=== PATIENT | female | born 1945 | race African-American/Black ===

== ENCOUNTER 2016-11-21 14:58 | Inpatient (IN) | payer OTHER ==
[2016-11-21] VITALS (10 sets, daily range): BP systolic 105–205; BP diastolic 68–90
[~2016-11-21] VITALS: Ht 157.5 cm; Wt 86.2 kg
--- NOTE | ~2016-11-21 | 2DMMODE ---
[facility] [address] [address] 2 D/M-MODE ECHOCARDIOGRAM Name: KAROLINE CHRISTIANSON Room #: 432-P ADM IN M.R.#: [id number] Admission: 11/21/16 Attend Phys: Tommy Bhakta MD, Discharge: Date of : 43 Date of Service: 11/22/16 1348 Report #: [id number] THIS REPORT FOR: //name// APPROVED REPORT Study performed: 11/22/2016 08:33:36 EXAM: Comprehensive 2D, Doppler, and color-flow Echocardiogram Patient Location: Echo lab Room #: 432 Other Information Study Quality: Good Indications COPD Bradycardia CAD Hypertension/HDD 2D Dimensions RVDd: 27.89 mm LVEF(%): 72.11 (>50%) IVSd: 13.96 (7-11mm) LVOT Diam: 18.11 (18-24mm) LVDd: 35.51 mm PWd: 13.54 (7-11mm) Ascending Ao: 27.99 (22-36mm) LVDs: 21.16 (25-40mm) Aortic Root: 26.27 mm IVC: 10.00 mm Pacheco's LVEF: 72.11 % Volumes Left Atrial Volume (Systole) Single Plane 4CH: 34.94 mL Single Plane 2CH: 35.60 mL LA ESV Index: 56.00 mL/m2 Aortic Valve AoV Peak Daniel.: 1.73 m/s AO Peak Gr.: 11.97 mmHg LVOT Max P.78 mmHg LVOT Max V: 1.48 m/s CHUCK Vmax: 2.21 cm2 Mitral Valve E/A Ratio: 0.8 MV Decel. Time: 294.74 ms [facility] [address] [address] 2 D/M-MODE ECHOCARDIOGRAM Name: KAROLINE CHRISTIANSON Room #: [facility] [place] [facility].#: [id number] Admission: 11/21/16 Attend Phys: Tommy Bhakta MD, Discharge: Date of : 43 Date of Service: 11/22/16 1348 Report #: [id number] E Max Daniel.: 0.87 m/s MV A Daniel.: 1.14 m/s MV PHT: 85.48 ms IVRT: 141.87 ms Pulmonary Valve PV Peak Daniel.: 1.01 m/s PV Peak Gr.: 4.09 mmHg Pulmonary Vein P Vein S: 0.66 m/s P Vein A: 0.32 m/s P Vein D: 0.41 m/s P Vein A Dur.: 100.3 msec P Vein S/D Ratio: 1.61 Tricuspid Valve TR Peak Daniel.: 3.00 m/s RAP Estimate: 5.00 mmHg TR Peak Gr.: 36.02 mmHg Left Ventricle The left ventricle is normal size. There is normal LV segmental wall motion. Moderate concentric left ventricular hypertrophy. The left ventricular systolic function is normal. The left ventricular ejection fraction is within the normal range. LVEF is 65-70%. Mild diastolic dysfunction is present (impaired relaxation pattern). Right Ventricle The right ventricle is normal size. The right ventricular systolic function is normal. Atria Left atrium is dilated. Right atrium is dilated. Aortic Valve The aortic valve is mildly calcified No aortic regurgitation is present. There is no aortic valvular stenosis. Mitral Valve The mitral valve is normal in structure. Trace mitral regurgitation. No evidence of mitral valve stenosis. Tricuspid Valve The tricuspid valve is normal in structure. There is mild to moderate tricuspid regurgitation. The right atrial pressure is estimated at 5 mmHg and PAP estimated at 41 mmHg. Pulmonic Valve [address] [address] 2 D/M-MODE ECHOCARDIOGRAM Name: KAROLINE CHRISTIANSON Room #: 432-P [facility] IN M.R.#: [id number] Admission: 11/21/16 Attend Phys: Tommy Bhakta MD, Discharge: Date of : 43 Date of Service: 11/22/16 1348 Report #: [id number] The pulmonary valve is normal in structure. Trace pulmonic regurgitation. Great Vessels The aortic root is normal in size. IVC is normal in size and collapses >50% with inspiration. Pericardium There is no pericardial effusion. <Conclusion> The left ventricular systolic function is normal. Moderate concentric left ventricular hypertrophy. There is normal LV segmental wall motion. LVEF 65-70%. Mild diastolic dysfunction is present (impaired relaxation pattern). Both atria are dilated. The aortic valve is mildly calcified. No aortic regurgitation or stenosis The mitral valve is normal in structure. Trace mitral regurgitation. Pulmonary artery pressure of 40mmHg There is no pericardial effusion. <ELECTRONICALLY SIGNED> By: Edson Arellano MD, FACC 11/22/16 1348 1348 1348 Edson Arellano MD, FACC /INF
--- NOTE | ~2016-11-21 | EKG ---
[place] [address] [address] [facility] [place] [address] ELECTROCARDIOGRAM REPORT Name: KAROLINE CHRISTIANSON Room #: 432-P ADM IN M.R.#: [id number] Admission: 11/21/16 Attend Phys: Tommy Bhakta MD, FAAF Discharge: Date of : 43 Report #: [id number] THIS REPORT FOR: //name// [facility] Test Date: 2016-11-25 Test Time: 08:29:12 Pat Name: KAROLINE CHRISTIANSON Department: Room: 432 Gender: F Application Developer: KIA : 1945 Requested By: Tommy Bhakta Order Number: [id number] MD: Edson Arellano Measurements Intervals [place] Rate: 61 P: 48 CA: 125 QRS: -5 QRSD: 75 T: 13 QT: 418 QTc: 421 Interpretive Statements Sinus rhythm Abnormal R-wave progression, late transition Compared to ECG 11/22/2016 07:05:07 Sinus bradycardia no longer present Electronically Signed On 11-26-2016 9:22:47 CDT by Edson Arellano [email or web address] <ELECTRONICALLY SIGNED> By: Edson Arellano MD, [facility] 11/26/1622 8 8 Edson Arellano MD, [facility] /EPI
--- NOTE | ~2016-11-21 | EKG ---
[place] [address] [email or web address] [employer] [place] [address] ELECTROCARDIOGRAM REPORT Name: KAROLINE CHRISTIANSON Room #: 432- ADM IN M.R.#: [id number] Admission: 11/21/16 Attend Phys: Tommy Bhakta MD, FAAF Discharge: Date of : 43 Report #: [id number] THIS REPORT FOR: //name// [facility] Test Date: 2016-11-22 Test Time: 07:05:07 Pat Name: KAROLINE CHRISTIANSON Department: Room: 432 Gender: F Wrapping Machine Operator: Bonilla CONSTANTINO : 1945 Requested By: Jason Lopez Order Number: [id number] MD: Edson Arellano Measurements Intervals [place] Rate: 51 P: 59 OR: 117 QRS: -7 QRSD: 94 T: 25 QT: 498 QTc: 459 Interpretive Statements Sinus bradycardia Borderline short OR interval Consider left ventricular hypertrophy Compared to ECG 05/23/2007 09:52:10 Sinus bradycardia no longer present Electronically Signed On 11-23-2016 8:31:37 CDT by Edson Arellano [email or web address] <ELECTRONICALLY SIGNED> By: Edson Arellano MD, [facility] 11/23/16 0831 4 4 Edson Arellano MD, [facility] /EPI
[~2016-11-21 14:58] MED LIST: CHILDREN'S ASPI81 M1 PO; COZAAR 50 MG TA50 M2 PO; DUONEB 2.5-0.5 M3 ML INH; NORCO 5-325 TA1 EACH PO; NORVASC10 MG PO; ZOFRAN ODT4 MG PO
[2016-11-21 16:19] LABS: HEMOGLOBIN 12.8 gm/dL (12.0-15.0); MCH 26.5 pg (26.0-34.0); MCHC 32.7 g/dL (28.0-37.0); MCV 80.8 fL (80.0-100.0); PLATELET COUNT 310 thou/uL (150-400); RBC 4.82 mil/uL (4.20-5.00); RDW 15.1 % (10.5-14.5); WBC 11.7 thou/uL (4.0-11.0)
[2016-11-21 16:21] LABS: MANUAL DIFF YES
[2016-11-21 16:39] LABS: ANION GAP 6 mmol/L (7-16); BUN 23 mg/dL (7-18); CALCIUM 9.2 mg/dL (8.5-10.1); CHLORIDE 100 mmol/L (98-107); CO2 34 mmol/L (21-32); CREATININE 1.3 mg/dL (0.6-1.0); GLUCOSE 134 mg/dL (74-106); NT-PRO BRAIN NAT PEPTIDE 386 pg/mL (<300); SODIUM 140 mmol/L (136-145); TROPONIN-I < 0.04 ng/mL (<0.04-0.07)
[2016-11-21 16:44] LABS: POTASSIUM 2.7 mmol/L (3.5-5.1)
[2016-11-21 17:22] LABS: ABSOLUTE NEUTROPHILS 9.9 thou/uL (1.4-8.2); TOTAL CELL COUNT 100
[2016-11-21 17:23] LABS: ANISOCYTOSIS 1+; HYPOCHROMASIA 1+; LARGE PLATELETS FEW
[2016-11-21 18:33] LABS: URINE BILIRUBIN NEGATIVE (Negative); URINE BLOOD TRACE (Negative); URINE COLOR YELLOW; URINE GLUCOSE-RANDOM* NEGATIVE (Negative); URINE KETONES NEGATIVE (Negative); URINE NITRITE NEGATIVE (Negative); URINE PROTEIN (DIPSTICK) NEGATIVE (Negative); URINE UROBILINOGEN 0.2 E.U./dl (0.2-1.0)
[2016-11-21 18:46] LABS: BACTERIA 1-9 Few /HPF (None Seen); CASTS None Seen /LPF (None Seen); CRYSTALS None Seen /LPF (None Seen); SQUAMOUS >10 Many /LPF (0-3); URINE RBC None Seen /HPF (0-2)
[2016-11-21] MEDS ORDERED: PROTONIX40 M1 PO (22:27)
[2016-11-21] MEDS ORDERED: LAMISIL250 MG PO (22:30)
[2016-11-21] MEDS ORDERED: ANTIVERT25 MG PO (22:32)
[2016-11-21] MEDS ORDERED: LOPRESSOR50 PO (22:34)
[2016-11-21] MEDS ORDERED: ANORO ELLIPTA1 EACH IH (22:39)
[2016-11-22] VITALS (7 sets, daily range): BP systolic 146–184; BP diastolic 71–92
[2016-11-22 08:28] LABS: CALCIUM 9.5 mg/dL (8.5-10.1); CREATININE 1.2 mg/dL (0.6-1.0); POTASSIUM 3.3 mmol/L (3.5-5.1)
[2016-11-22 10:58] LABS: URINE CREATININE-RANDOM* 72.8 mg/dL; URINE POTASSIUM-RANDOM* 49.8 mmol/L
[2016-11-23 04:00] VITALS: BP 160/80
[2016-11-23 08:30] VITALS: BP 164/82
[2016-11-23 09:54] LABS: CALCIUM 9.7 mg/dL (8.5-10.1); CREATININE 1.2 mg/dL (0.6-1.0)
[2016-11-23 10:02] LABS: POTASSIUM 2.9 mmol/L (3.5-5.1)
[2016-11-23 15:42] VITALS: BP 148/67
[2016-11-23 15:45] VITALS: BP 148/67
[2016-11-23 21:00] VITALS: BP 155/78
[2016-11-24 04:00] VITALS: BP 173/100
[2016-11-24 05:12] LABS: ALBUMIN 3.7 g/dL (3.4-5.0); CALCIUM 9.6 mg/dL (8.5-10.1); CREATININE 1.2 mg/dL (0.6-1.0); PHOSPHORUS 3.1 mg/dL (2.5-4.9); POTASSIUM 3.5 mmol/L (3.5-5.1)
[2016-11-24 07:14] VITALS: BP 170/86
[2016-11-24 10:33] VITALS: BP 168/102
[2016-11-24 16:21] VITALS: BP 148/83
[2016-11-24 20:00] VITALS: BP 158/86
[2016-11-25 04:00] VITALS: BP 148/81
[2016-11-25 04:50] LABS: ALBUMIN 3.1 g/dL (3.4-5.0); CALCIUM 9.2 mg/dL (8.5-10.1); CREATININE 1.1 mg/dL (0.6-1.0); PHOSPHORUS 3.3 mg/dL (2.5-4.9); POTASSIUM 3.9 mmol/L (3.5-5.1)
[2016-11-25 08:56] VITALS: BP 177/81
[2016-11-25 16:14] VITALS: BP 168/89
[2016-11-25 20:10] VITALS: BP 157/73
[2016-11-26 03:34] VITALS: BP 135/78
[2016-11-26 07:35] VITALS: BP 149/81
[2016-11-29 17:11] LABS: RENIN < 0.167 ng/mL/hr (0.167-5.380)
== END 2016-11-26 18:45 | disposition home or self-care (01) | DRG 641 ==
LOC: ER 14:58 → 4E 17:25 → EROBS 17:25 → 4E 18:45
PROVIDERS: Family Medicine; Hospitalist; Nurse Practitioner
DX: E87.6 Hypokalemia (principal); I65.21 Occlusion and stenosis of right carotid artery; I10 Essential (primary) hypertension; H53.9 Unspecified visual disturbance; E11.9 Type 2 diabetes mellitus without complications; G47.33 Obstructive sleep apnea (adult) (pediatric); J30.2 Other seasonal allergic rhinitis; E78.5 Hyperlipidemia, unspecified; M19.90 Unspecified osteoarthritis, unspecified site; J44.9 Chronic obstructive pulmonary disease, unspecified; K21.9 Gastro-esophageal reflux disease without esophagitis; F17.210 Nicotine dependence, cigarettes, uncomplicated; Z88.0 Allergy status to penicillin; Z88.2 Allergy status to sulfonamides; Z91.041 Radiographic dye allergy status; Z82.49 Family history of ischemic heart disease and other diseases of the circulatory system; Z80.8 Family history of malignant neoplasm of other organs or systems
CPT/HCPCS: 10183

== ENCOUNTER → 2016-11-28 | Outpatient (CLI) | payer OTHER ==
[~2016-11-28] VITALS: Ht 157.5 cm; Wt 86.2 kg
[~2016-11-28] MED LIST changes: +ANORO ELLIPTA1 EACH IH; +ANTIVERT25 MG PO; +ASPIRIN325 PO; +AZITHROMYCIN 2250 MG PO; +COMBIVENT RESPIM4 GM INH; +LAMISIL250 MG PO; +LOPRESSOR25 PO; +LOPRESSOR50 PO; +PROTONIX40 M1 PO; +ZOFRAN4 MG PO
[2016-11-28 09:46] VITALS: BP 131/74
[2016-11-28 09:56] LABS: HEMATOCRIT 38.7 % (37.0-47.0); HEMOGLOBIN 12.4 gm/dL (12.0-15.0); MCH 26.6 pg (26.0-34.0); MCHC 32.1 g/dL (28.0-37.0); RBC 4.66 mil/uL (4.20-5.00); RDW 16.1 % (10.5-14.5); WBC 7.8 thou/uL (4.0-11.0)
[2016-11-28 10:07] LABS: CALCIUM 9.2 mg/dL (8.5-10.1); CREATININE 1.5 mg/dL (0.6-1.0); POTASSIUM 4.5 mmol/L (3.5-5.1)
[2016-11-28 10:17] LABS: APTT 20.9 Seconds (24.5-32.8); PROTIME 9.5 Seconds (9.3-11.4)
[2016-11-28 13:46] VITALS: BP 134/84
== END ==
LOC: SPEC 09:17
PROVIDERS: Nuclear Medicine Nuclear Cardiology
DX: I66.9 Occlusion and stenosis of unspecified cerebral artery (principal); I73.9 Peripheral vascular disease, unspecified; I12.9 Hypertensive chronic kidney disease with stage 1 through stage 4 chronic kidney disease, or unspecified chronic kidney disease; N18.9 Chronic kidney disease, unspecified; I25.10 Atherosclerotic heart disease of native coronary artery without angina pectoris; J44.9 Chronic obstructive pulmonary disease, unspecified; Z98.890 Other specified postprocedural states; E78.5 Hyperlipidemia, unspecified; K21.9 Gastro-esophageal reflux disease without esophagitis

== ENCOUNTER 2016-12-05 05:38 | Inpatient (IN) | payer OTHER ==
[~2016-12-05] VITALS: Ht 160 cm; Wt 91.2 kg
[2016-12-05] VITALS (12 sets, daily range): BP systolic 90–167; BP diastolic 49–102
--- NOTE | ~2016-12-05 | S ---
[facility] [place] [address] SURGICAL PATH RPT PROCEDURE Name: KENDRA CHRISTIANSON Room #: 213-P DIS IN M.R.#: [id number] Admission: 12/05/16 Date of : 43 Discharge: 12/07/16 Report #: [id number] Path Case #: [id number] PATHOLOGY REPORT COLLECTION DATE: 12/05/2016 RECEIVED DATE: 12/05/2016 SUBMITTING PHYS: Dr. Tripp Wilson OTHER PHYS: Dr. Kaushal Pedro M.D. Dr. Tommy Bhakta SPECIMEN(S) RECEIVED: A.Right carotid plaque * * * * * * * * * * * * FINAL DIAGNOSIS: A. Right carotid plaque, removal: - Calcific sclerosis. PATHOLOGIST: Sujatha Crocker M.D. REPORT ELECTRONICALLY SIGNED BY: Sujatha Corcker M.D. DATE/TIME: 12/07/2016 15:06 * * * * * * * * * * * * GROSS PATHOLOGY: The specimen is received in formalin labeled "Kendra Christianson, right carotid plaque". Received is a tubular segment of white-romeo rubbery tissue with multiple foci calcifications measuring 2.8 cm in length by 1.0 cm in diameter. The specimen is submitted representatively in cassette A1, following decalcification. (CAA; 12/06/2016) CLINICAL HISTORY: Carotid stenosis INITIAL CPT CODE(S): A; 23309, 42221 Professional services performed by [facility] at [facility] [address] [place] [address] Technical services performed by [facility] at [address] [place] [address], [address] [address]. [facility] [address] [place] [address] SURGICAL PATH RPT PROCEDURE Name: KENDRA CHRISTIANSON Room #: 213-P DIS IN Bibi#: [id number] Admission: 12/05/16 Date of : 43 Discharge: 12/07/16 Report #: [id number] Path Case #: [id number] [facility] [address] [place] [address] PHONE: [phone] DIRECTOR: Marcos Boyce M.D. * * * END OF REPORT * * *
[~2016-12-05 05:38] MED LIST changes: -ASPIRIN325 PO; -LOPRESSOR25 PO
[2016-12-05 09:00] LABS: URINE BILIRUBIN NEGATIVE (Negative); URINE BLOOD NEGATIVE (Negative); URINE COLOR YELLOW; URINE GLUCOSE-RANDOM* NEGATIVE (Negative); URINE KETONES NEGATIVE (Negative); URINE NITRITE NEGATIVE (Negative); URINE PROTEIN (DIPSTICK) TRACE (Negative); URINE UROBILINOGEN 0.2 E.U./dl (0.2-1.0)
[2016-12-05 09:14] LABS: ALBUMIN 4.3 g/dL (3.4-5.0); APTT 19.7 Seconds (24.5-32.8); CALCIUM 9.7 mg/dL (8.5-10.1); CREATININE 1.6 mg/dL (0.6-1.0); PROTIME 9.5 Seconds (9.3-11.4); TOTAL BILIRUBIN 0.5 mg/dL (<0.1-1.0)
[2016-12-05 13:45] LABS: HEMATOCRIT 40.2 % (37.0-47.0); MCH 26.7 pg (26.0-34.0); MCHC 32.2 g/dL (28.0-37.0); MCV 82.9 fL (80.0-100.0); RBC 4.85 mil/uL (4.20-5.00); RDW 16.1 % (10.5-14.5); WBC 10.5 thou/uL (4.0-11.0)
[2016-12-06] VITALS (13 sets, daily range): BP systolic 96–137; BP diastolic 52–83
[2016-12-06 05:41] LABS: HEMATOCRIT 28.9 % (37.0-47.0); MCH 26.8 pg (26.0-34.0); MCHC 32.3 g/dL (28.0-37.0); MCV 82.9 fL (80.0-100.0); RBC 3.49 mil/uL (4.20-5.00); WBC 13.5 thou/uL (4.0-11.0)
[2016-12-06 05:49] LABS: HEMOGLOBIN 9.3 gm/dL (12.0-15.0)
[2016-12-06 05:51] LABS: CALCIUM 7.7 mg/dL (8.5-10.1); CREATININE 1.7 mg/dL (0.6-1.0); POTASSIUM 3.8 mmol/L (3.5-5.1)
[2016-12-07 04:12] VITALS: BP 163/82
[2016-12-07 07:55] VITALS: BP 174/78
[2016-12-07] MEDS ORDERED: LOPRESSOR25 PO (09:30)
[2016-12-07] MEDS ORDERED: ASPIRIN325 PO (09:31)
[2016-12-07 09:58] VITALS: BP 174/78
[2016-12-07 11:00] VITALS: BP 188/102
== END 2016-12-07 13:45 | disposition home or self-care (01) | DRG 39 ==
LOC: ICU 05:38 → TBA 05:38 → PRE 09:17 → ICU 14:38 → 2N 12-06 12:52
PROVIDERS: Nurse Practitioner; Thoracic Surgery (Cardiothoracic Vascular Surgery)
PROC: 03CK0ZZ Extirpation of Matter from Right Internal Carotid Artery, Open Approach (ICD-10-PCS; principal; 2016-12-05)
PROC: 03UM0KZ Supplement Right External Carotid Artery with Nonautologous Tissue Substitute, Open Approach (ICD-10-PCS; principal; 2016-12-05)
DX: I65.21 Occlusion and stenosis of right carotid artery (principal); E78.5 Hyperlipidemia, unspecified; I10 Essential (primary) hypertension; K21.9 Gastro-esophageal reflux disease without esophagitis; M19.90 Unspecified osteoarthritis, unspecified site; F41.9 Anxiety disorder, unspecified; J44.9 Chronic obstructive pulmonary disease, unspecified; G47.33 Obstructive sleep apnea (adult) (pediatric); Z90.721 Acquired absence of ovaries, unilateral; Z87.442 Personal history of urinary calculi; Z88.2 Allergy status to sulfonamides; Z88.0 Allergy status to penicillin; Z88.1 Allergy status to other antibiotic agents; Z91.040 Latex allergy status
CPT/HCPCS: 10204; 10797; 48888; 50010; 50101; 50386; 50417; 50455; 51301; 52279; 54118; 56524; 56526; 56528; 56534; 56639; 62110; 62900; 64029; 65002; 65020; 65040; 65043; 65090; 70005

== ENCOUNTER 2016-12-08 23:57 | Emergency (ER) | payer OTHER ==
[~2016-12-08] VITALS: Ht 160 cm; Wt 77.1 kg
--- NOTE | ~2016-12-08 | EKG ---
[place] [address] [facility] [address] ELECTROCARDIOGRAM REPORT Name: KAROLINE CHRISTIANSON Room #: DEP Bibi#: [id number] Admission: 12/08/16 Attend Phys: Discharge: 12/09/16 Date of : 43 Report #: [id number] THIS REPORT FOR: //name// [facility] ED Test Date: 2016-12-09 Test Time: 00:26:58 Pat Name: KAROLINE CHRISTIANSON Department: Room: Gender: F Design Technician: lani shmuel : 1945 Requested By: [place] Will Order Number: [id number] MD: Edson Arellano Measurements Intervals [place] Rate: 60 P: 55 WY: 120 QRS: 7 QRSD: 77 T: 17 QT: 399 QTc: 399 Interpretive Statements Sinus rhythm Minimal nonspecific ST segment abnormality Compared to ECG 11/25/2016 08:29:12 ST (T wave) deviation now present Electronically Signed On 12-09-2016 10:59:57 CDT by Edson Arellano [email or web address] <ELECTRONICALLY SIGNED> By: Edson Arellano MD, [facility] 12/09/16 1059 D: 0725 Edson Arellano MD, FACC /EPI
[~2016-12-08 23:57] MED LIST changes: +ASPIRIN325 PO; +LOPRESSOR25 PO
[2016-12-09] MEDS ORDERED: LOPRESSOR50 PO (00:11)
[2016-12-09 00:51] LABS: URINE BILIRUBIN NEGATIVE (Negative); URINE BLOOD 2+ (Negative); URINE COLOR YELLOW; URINE GLUCOSE-RANDOM* TRACE (Negative); URINE KETONES NEGATIVE (Negative); URINE LEUKOCYTES-REFLEX 1+ (Negative); URINE PROTEIN (DIPSTICK) NEGATIVE (Negative); URINE UROBILINOGEN 0.2 E.U./dl (0.2-1.0)
[2016-12-09 00:58] LABS: CASTS None Seen /LPF (None Seen); CRYSTALS None Seen /LPF (None Seen); SQUAMOUS 0-3 Few /LPF (0-3); URINE RBC 0-2 Rare /HPF (0-2); URINE WBC-REFLEX 0-5 Rare /HPF (0-5)
[2016-12-09 00:59] LABS: ABSOLUTE NEUTROPHILS 8.3 thou/uL (1.4-8.2); BASOPHILS 0.1 % (0.0-2.0); HEMATOCRIT 35.4 % (37.0-47.0); MCHC 32.2 g/dL (28.0-37.0); MCV 83.8 fL (80.0-100.0); PLATELET COUNT 162 thou/uL (150-400); POLYS 82.9 % (36.0-66.0); RBC 4.22 mil/uL (4.20-5.00); RDW 15.9 % (10.5-14.5)
[2016-12-09 01:01] LABS: HEMOGLOBIN 11.4 gm/dL (12.0-15.0)
[2016-12-09 01:03] LABS: CALCIUM 9.2 mg/dL (8.5-10.1); CREATININE 1.2 mg/dL (0.6-1.0); MANUAL DIFF NO; POTASSIUM 3.3 mmol/L (3.5-5.1)
[2016-12-09 01:08] LABS: APTT 21.9 Seconds (24.5-32.8); PROTIME 9.8 Seconds (9.3-11.4)
[2016-12-09 01:13] LABS: ALBUMIN 3.5 g/dL (3.4-5.0); MAGNESIUM 2.2 mg/dL (1.8-2.4); TOTAL BILIRUBIN 0.3 mg/dL (<0.1-1.0); TOTAL PROTEIN 6.9 g/dL (6.4-8.2); TROPONIN-I 0.06 ng/mL (<0.04-0.07)
== END 2016-12-09 03:33 | disposition home or self-care (01) ==
LOC: ER 23:57
PROVIDERS: Emergency Medicine
DX: K59.00 Constipation, unspecified (principal); R07.9 Chest pain, unspecified; F41.9 Anxiety disorder, unspecified; I10 Essential (primary) hypertension; J44.9 Chronic obstructive pulmonary disease, unspecified; G47.33 Obstructive sleep apnea (adult) (pediatric); K21.9 Gastro-esophageal reflux disease without esophagitis; E78.5 Hyperlipidemia, unspecified; F17.210 Nicotine dependence, cigarettes, uncomplicated; F10.99 Alcohol use, unspecified with unspecified alcohol-induced disorder; Z98.890 Other specified postprocedural states; Z90.89 Acquired absence of other organs; Z90.721 Acquired absence of ovaries, unilateral; Z88.8 Allergy status to other drugs, medicaments and biological substances; Z91.040 Latex allergy status; Z88.0 Allergy status to penicillin; Z88.1 Allergy status to other antibiotic agents; Z88.2 Allergy status to sulfonamides

== ENCOUNTER → 2017-01-31 | Outpatient (CLI) | payer OTHER | LOC: RAD 10:17 | DX: M19.011 Primary osteoarthritis, right shoulder (principal); M51.36 Other intervertebral disc degeneration, lumbar region ==

== ENCOUNTER 2017-05-14 09:05 | Inpatient (IN) | payer OTHER ==
[~2017-05-14] VITALS: Ht 160 cm; Wt 80.3 kg
--- NOTE | ~2017-05-14 | EKG ---
[address] [place] [address] ELECTROCARDIOGRAM REPORT Name: KAROLINE CHRISTIANSON Room #: 353-P ADM IN M.R.#: [id number] Admission: 05/14/17 Attend Phys: Tommy Bhakta MD, FAAF Discharge: Date of : 43 Report #: [id number] THIS REPORT FOR: //name// [facility] Test Date: 2017-05-15 Test Time: 10:14:30 Pat Name: KAROLINE CHRISTIANSON Department: Room: 353 Gender: F Cancer Program Coordinator: chrissy : 1945 Requested By: Champ Dave Order Number: [id number] MD: Edson Arellano Measurements Intervals [place] Rate: 62 P: 60 MS: 112 QRS: -2 QRSD: 76 T: 32 QT: 369 QTc: 375 Interpretive Statements Sinus rhythm Borderline short MS interval Nonspecific ST segment abnormality Compared to ECG 05/14/2017 09:23:08 Sinus bradycardia no longer present Electronically Signed On 05-17-2017 7:43:14 ACCOUNTS PAYABLE SPECIALIST by Edson Arellano [email or web address] <ELECTRONICALLY SIGNED> By: Edson Arellano MD, [facility] 05/17/17 0743 1014 1014 Edson Arellano MD, [facility] /EPI
--- NOTE | ~2017-05-14 | HC ---
[facility] [place] [address] CONSULTATION Name: KAROLINE CHRISTIANSON Room #: [address] [place] [address] IN M.R.#: [id number] Admission: 05/14/17 Attend Phys: Tommy Bhakta MD, [facility] Discharge: 05/18/17 Date of : 44 Report #: [id number] THIS REPORT FOR: //name// CC: Champ Bhakta HISTORY OF PRESENT ILLNESS: The patient is a 72-year-old female that I am asked to see for some recurrent chest pain, pressure and really refractory hypertension. One episode of epigastric pain this morning after breakfast, but has had none of this previously. Does not have documented coronary artery disease, had a right carotid endarterectomy in October. She has underlying COPD. No prior coronary or cardiac intervention. Blood pressure and chronic dizziness have been an issue. I believe she was admitted for a troponin of 0.05, which is not significant. Creatinine 1.4, potassium 3.2. H and H was 11 and 36, WBC was 13.2. Systolic pressure was in the 200 range. Allegedly, she has been compliant with losartan 50, Lopressor 50 b.i.d. We had planned on sending her home on some more aggressive drugs last hospitalization, but apparently that did not happen. She also takes Combivent, meclizine, metoprolol 50 b.i.d., losartan 50, amlodipine 10. EKG has sinus lizzeth with some nonspecific changes more like LVH. The echo has previously revealed LVH, last summer. She has had no pain here. She had relief from nitroglycerin, but of course this is nonspecific for coronary pain, highly unlikely that this would be cardiac in etiology. PAST MEDICAL HISTORY: Positive for the carotid endarterectomy, hypertension, COPD, sleep apnea on CPAP, reflux, long history of GI issues, hypokalemia (was supposed to have been sent home on Aldactone). SOCIAL HISTORY: She is retired. Lives with her . Former tobacco use. She drinks Mogen Andrey on a daily basis a fairly small amount she states. FAMILY HISTORY: Negative for premature coronary disease. REVIEW OF SYSTEMS: Essentially negative except for stated above. LABORATORY DATA: CT of the head was performed, mild atrophy, chronic changes. The chest x-ray shows no acute process. PHYSICAL EXAMINATION: GENERAL: Se is pleasant and alert. She is in no distress. I will discontinue the nitro drip. VITAL SIGNS: Blood pressure is currently 170/80, was high as 207; pulse 60s. HEENT: Eyes reveal xanthelasmas. Pharynx is clear. NECK: Shows preserved upstrokes without JVD or bruits. Well-healed scar in the right carotid. LUNGS: Clear with ____ expiratory phase. CARDIOVASCULAR: Regular rate and rhythm, ____ distant S4, S1, S2. ABDOMEN: Obese, slightly tender in the epigastric, plus/minus Sánchez's. [facility] [address] [place] [address] CONSULTATION Name: KAROLINE CHRISTIANSON Room #: 353-P [facility] IN M.R.#: [id number] Admission: 05/14/17 Attend Phys: Tommy Bhakta MD, FAAF Discharge: 05/18/17 Date of : 43 Report #: [id number] EXTREMITIES: Reveal trace of edema, nonpitting. NEUROLOGIC: Nonfocal. SKIN: Warm and dry without xanthoma or ulcer. MUSCULOSKELETAL: Some mild valgus deformity of the knees. I did not ambulate her. ASSESSMENT: 1. Chest pain, I suspect gastroesophageal reflux. 2. 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 3. Peripheral chest pain. 4. Hypertension. 5. Hypercholesterolemia. 6. Sleep apnea. 7. Status post right carotid endarterectomy. RECOMMENDATIONS: We will initiate Aldactone for this refractory case. We will increase the losartan to 100, switch to a selective beta brayan with less negative chronotropic properties 10 mg of Bystolic. Echo Doppler is currently being performed. A nuclear stress test and abdominal ultrasound to rule out a significant underlying gallbladder disease in the a.m. Most importantly, we will need to get her on an optimal blood pressure regimen. I suspect this is noncardiac pain, but needs to be proven to all. We will continue to follow with you. Thank you for allowing us to assist in her care. <ELECTRONICALLY SIGNED> By: Gareth Rosales MD, FACC 05/31/17 08 151 47 Gareth Rosales MD, FACC /nt
--- NOTE | ~2017-05-14 | 2DMMODE ---
[facility] [address] [place] [address] 2 D/M-MODE ECHOCARDIOGRAM Name: KAROLINE CHRISTIANSON Room #: 353-P ADM IN M.R.#: [id number] Admission: 05/14/17 Attend Phys: Tommy Bhakta MD, Discharge: Date of : 43 Date of Service: 05/15/17 1033 Report #: [id number] THIS REPORT FOR: //name// APPROVED REPORT Study performed: 05/14/2017 15:09:42 EXAM: Comprehensive 2D, Doppler, and color-flow Echocardiogram Patient Location: Bedside Room #: 353 Status: routine BSA: 1.82 HR: 55 bpm BP: 172/79 mmHg Other Information Study Quality: Adequate Indications COPD Chest Pain Hypertension/HDD 2D Dimensions RVDd: 26.19 mm LVEF(%): 77.81 (>50%) IVSd: 13.61 (7-11mm) LVOT Diam: 16.71 (18-24mm) LVDd: 30.70 mm PWd: 13.54 (7-11mm) Ascending Ao: 26.13 (22-36mm) LVDs: 16.86 (25-40mm) Aortic Root: 28.49 mm IVC: 16.00 mm Pacheco's LVEF: 77.81 % Volumes Left Atrial Volume (Systole) Single Plane 4CH: 54.06 mL Single Plane 2CH: 54.95 mL LA ESV Index: 32.00 mL/m2 Aortic Valve AoV Peak Daniel.: 2.24 m/s AO Peak Gr.: 20.15 mmHg LVOT Max P.86 mmHg AO Mean Gr.: 8.20 mmHg LVOT Mean P.11 mmHg AO V2 Mean: 1.31 m/s LVOT Max V: 1.40 m/s AO V2 VTI: 33.21 cm LVOT Mean V: 0.77 m/s CHUCK (VTI): 1.43 cm2 LVOT V1 VTI: 21.64 cm CHUCK Vmax: 1.37 cm2 [facility] [address] [address] 2 D/M-MODE ECHOCARDIOGRAM Name: CHRISTIANSONKAROLINE Room #: 353-P [facility] IN .R.#: [id number] Admission: 05/14/17 Attend Phys: Tommy Bhakta MD, Discharge: Date of : 43 Date of Service: 05/15/17 1033 Report #: [id number] SV (LVOT): 47.43 mL Mitral Valve E/A Ratio: 0.6 MV Decel. Time: 341.93 ms MV E Max Daniel.: 0.67 m/s MV A Daniel.: 1.13 m/s MV PHT: 99.16 ms IVRT: 141.87 ms Pulmonary Valve PV Peak Daniel.: 1.03 m/s PV Peak Gr.: 4.20 mmHg Pulmonary Vein P Vein S: 0.72 m/s P Vein A: 0.32 m/s P Vein D: 0.41 m/s P Vein A Dur.: 114.2 msec P Vein S/D Ratio: 1.76 Tricuspid Valve TR Peak Daniel.: 2.72 m/s RAP Estimate: 5.00 mmHg TR Peak Gr.: 29.50 mmHg PA Pressure: 35.00 mmHg Left Ventricle The left ventricle is normal size. Mild concentric left ventricular hypertrophy. The left ventricular systolic function is normal. The left ventricular ejection fraction is within the normal range. LVEF is 65%. Mild diastolic dysfunction is present (impaired relaxation pattern). Right Ventricle The right ventricle is normal size. The right ventricular systolic function is normal. Aortic Valve The aortic valve is normal in structure. No aortic regurgitation is present. Mildly elevated aortic velocity at 2.2 m/s. Highest mean aortic valve gradient is 8 mmHg. Mitral Valve The mitral valve is normal in structure. There is no mitral valve regurgitation noted. No evidence of mitral valve stenosis. Tricuspid Valve The tricuspid valve is normal in structure. Trace to mild tricuspid regurgitation. PAP is estimated at 35 mmHg. [facility] [address] [place] [address] 2 D/M-MODE ECHOCARDIOGRAM Name: KAROLINE CHRISTIANSON Room #: 353-P ADM IN M.R.#: [id number] Admission: 05/14/17 Attend Phys: Tommy Bhakta MD, Discharge: Date of : 43 Date of Service: 05/15/17 1033 Report #: [id number] Pulmonic Valve The pulmonary valve is normal in structure. Trace to mild pulmonic regurgitation. Great Vessels The aortic root is normal in size. IVC is normal in size and collapses >50% with inspiration. Pericardium There is no pericardial effusion. <Conclusion> The left ventricle is normal size. Mild concentric left ventricular hypertrophy. LVEF is 65%. Mild diastolic dysfunction is present (impaired relaxation pattern). The right ventricular systolic function is normal. Mildly elevated aortic velocity at 2.2 m/s. Highest mean aortic valve gradient is 8 mmHg. There is no mitral valve regurgitation noted. Trace to mild tricuspid regurgitation. PAP is estimated at 35 mmHg. There is no pericardial effusion. <ELECTRONICALLY SIGNED> By: Gareth Rosales MD, FACC 05/15/17 1033 1033 1033 Gareth Rosales MD, FACC /INF
--- NOTE | ~2017-05-14 | EKG ---
[place] [address] [facility] [place] [address] ELECTROCARDIOGRAM REPORT Name: KAROLINE CHRISTIANSON Room #: MARI Mtz#: [id number] Admission: 05/14/17 Attend Phys: Discharge: Date of : 43 Report #: [id number] THIS REPORT FOR: //name// [facility] ED Test Date: 2017-05-14 Test Time: 09:23:08 Pat Name: KAROLINE CHRISTIANSON Department: Room: Gender: F Apartment Property Manager: [facility] : 1945 Requested By: Bony Carter Order Number: [id number] MD: Fransisco Nolan Measurements Intervals [place] Rate: 49 P: 76 WY: 111 QRS: 2 QRSD: 74 T: 34 QT: 451 QTc: 408 Interpretive Statements Sinus bradycardia Borderline short [place] interval Left ventricular hypertrophy Compared to ECG 12/09/2016 00:26:58 Left ventricular hypertrophy now present Sinus rhythm no longer present ST (T wave) deviation no longer present Electronically Signed On 05-14-2017 12:28:11 LADIES LOCKER ROOM ATTENDANT by Fransisco Nolan [email or web address] <ELECTRONICALLY SIGNED> By: Fransisco Nolan MD 05/14/17 1228 2 2 Fransisco Nolan MD /CALLI
--- NOTE | ~2017-05-14 | HC ---
[facility] [place] [address] CONSULTATION Name: KAROLINE CHRISTIANSON Room #: [address] [place] [address] IN M.R.#: [id number] Admission: 05/14/17 Attend Phys: Tommy Bhakta MD, FAAF Discharge: Date of : 43 Report #: [id number] THIS REPORT FOR: //name// CC: Tommy Bhakta DATE OF SERVICE: 05/14/2017 HISTORY OF PRESENT ILLNESS: This is a 72-year-old female patient who was evaluated by me for any neurological etiology for the patient's dizziness. She indicates when she tries to get up she feels dizzy and standing and she may have some ____ that time. She is fully subconscious during that episode. She has been evaluated by Cardiology and ENT and no definite cause has been found. REVIEW OF SYSTEMS: Indicate that she does have hypertension. Her blood pressure has been fluctuating here. It is not clear whether there is any correlation between high blood pressure and her dizziness. She had endarterectomy in the past. Review of systems also indicate she has sleep apnea. She was admitted with chest pain. Review of systems was carried out for 14-point, but except for one, it was noncontributory. PAST MEDICAL HISTORY: Negative for this kind of dizziness. She does have some hearing loss. FAMILY HISTORY: Negative for early age stroke. SOCIAL HISTORY: She does have a history of smoking and drinking. PHYSICAL EXAMINATION: Indicate that she is alert. She is responsive. Her speech, concentration, fund of knowledge and memory is at her baseline. Cranial nerve examination 2-12 is unremarkable. I do not see any nystagmus. She has symmetrical strength, sensation, reflexes and tone in all 4 extremities. There is no meningeal sign. There is no carotid bruit in this patient. I could not have a very good look at the patient's fundus. She is reasonably well-developed individual who does not have any dysmorphic features of eyes, ears and face. Her visions and hearing looks adequate. She does not have any thyroid mass. Cardiac examination indicate normal breath sounds and no murmur or atrial fibrillation, no respiratory difficulty or rhonchi was noted. Blood pressure is 155/73, respiration is 20, pulse is 74, temperature is 97.4. LABORATORY DATA: Her white count is 13.9. Her potassium was trace low at 3.3. We did an MRI of the head, MRA of the head and neck, they do not show any acute changes, but it does show chronic changes in this patient. IMPRESSION: It does not look like there is any neurological etiology for the patient's symptoms. We will check her for any postural drop in blood pressure. I will get an EEG done. She does have chronic changes on her MRI, but I do not [facility] [address] [place] [address] CONSULTATION Name: KAROLINE CHRISTIANSON Room #: 353-P [facility] IN M.R.#: [id number] Admission: 05/14/17 Attend Phys: Tommy Bhakta MD, FAAF Discharge: Date of : 43 Report #: [id number] think that explains her dizziness. We will reevaluate after checking her for any postural drop in blood pressure and see what happens after treating her hypertension. RECOMMENDATIONS: 1. Continue to treat for hypertension. 2. Check for any postural drop in blood pressure. 3. I will check an EEG in this patient, but if EEG is negative, it is unlikely that there is any neurological etiology for the patient's symptom and she should continue to follow up with other physicians to determine any other etiology for the patient's symptom. I discussed all of it in detail with the patient and she understands she wants to follow this plan. Thank you very much for this referral. <ELECTRONICALLY SIGNED> By: Emil Burkett MD 05/17/171934 32 28 Emil Burkett MD /nt
[2017-05-14 09:06] VITALS: BP 164/89
[2017-05-14 09:33] LABS: HEMATOCRIT 36.9 % (37.0-47.0); HEMOGLOBIN 11.8 gm/dL (12.0-15.0); MCH 26.7 pg (26.0-34.0); MCHC 32.1 g/dL (28.0-37.0); MCV 83.2 fL (80.0-100.0); PLATELET COUNT 237 thou/uL (150-400); RBC 4.43 mil/uL (4.20-5.00); RDW 15.2 % (10.5-14.5); WBC 13.2 thou/uL (4.0-11.0)
[2017-05-14 09:39] LABS: CALCIUM 9.4 mg/dL (8.5-10.1); CREATININE 1.4 mg/dL (0.6-1.0); POTASSIUM 3.2 mmol/L (3.5-5.1)
[2017-05-14 09:46] LABS: ALBUMIN 3.3 g/dL (3.4-5.0); TOTAL BILIRUBIN 0.2 mg/dL (<0.1-1.0); TOTAL PROTEIN 6.1 g/dL (6.4-8.2); TROPONIN-I 0.07 ng/mL (<0.06)
[2017-05-14 10:23] LABS: URINE BILIRUBIN NEGATIVE (Negative); URINE BLOOD TRACE (Negative); URINE CLARITY CLEAR; URINE COLOR YELLOW; URINE GLUCOSE-RANDOM* TRACE (Negative); URINE KETONES NEGATIVE (Negative); URINE NITRITE-REFLEX NEGATIVE (Negative); URINE PROTEIN (DIPSTICK) NEGATIVE (Negative); URINE UROBILINOGEN 0.2 E.U./dl (0.2-1.0)
[2017-05-14 10:24] LABS: URINE LEUKOCYTES-REFLEX TRACE (Negative)
[2017-05-14 10:42] LABS: ABSOLUTE NEUTROPHILS 10.2 thou/uL (1.4-8.2); METAMYELOCYTES 1 %
[2017-05-14 10:43] LABS: ANISOCYTOSIS SLIGHT
[2017-05-14 11:03] LABS: INR 1.1; PROTIME 10.8 Seconds (9.3-11.4)
[2017-05-14 12:09] VITALS: BP 183/91
[2017-05-14 12:28] VITALS: BP 183/91
[2017-05-14] MEDS ORDERED: ASPIR 8181 MG PO (13:17)
[2017-05-14] MEDS ORDERED: ANTIVERT25 MG PO (13:17)
[2017-05-14 13:25] VITALS: BP 172/79
[2017-05-14 16:30] VITALS: BP 158/71
[2017-05-14 20:00] VITALS: BP 132/66
[2017-05-15] VITALS (8 sets, daily range): BP systolic 134–181; BP diastolic 63–102
[2017-05-15 09:46] LABS: HEMATOCRIT 39.2 % (37.0-47.0); HEMOGLOBIN 12.6 gm/dL (12.0-15.0); MCHC 32.2 g/dL (28.0-37.0); MCV 83.7 fL (80.0-100.0); RBC 4.68 mil/uL (4.20-5.00); RDW 15.7 % (10.5-14.5); WBC 13.9 thou/uL (4.0-11.0)
[2017-05-15 09:57] LABS: CREATININE 1.2 mg/dL (0.6-1.0); POTASSIUM 3.3 mmol/L (3.5-5.1)
[2017-05-16] VITALS (8 sets, daily range): BP systolic 132–162; BP diastolic 66–83
[2017-05-16 06:36] LABS: CALCIUM 9.2 mg/dL (8.5-10.1); CREATININE 1.5 mg/dL (0.6-1.0); POTASSIUM 3.3 mmol/L (3.5-5.1)
[2017-05-17 07:54] VITALS: BP 137/75
[2017-05-17 11:37] VITALS: BP 143/61
[2017-05-17 11:54] LABS: HEMATOCRIT 35.1 % (37.0-47.0); HEMOGLOBIN 11.3 gm/dL (12.0-15.0); MCH 26.9 pg (26.0-34.0); MCHC 32.2 g/dL (28.0-37.0); MCV 83.7 fL (80.0-100.0); RBC 4.19 mil/uL (4.20-5.00); RDW 15.3 % (10.5-14.5); WBC 15.1 thou/uL (4.0-11.0)
[2017-05-17 19:29] VITALS: BP 147/85
[2017-05-18 04:15] VITALS: BP 145/92
[2017-05-18 08:30] VITALS: BP 121/56
[2017-05-18 12:34] VITALS: BP 139/65
[2017-05-18] MEDS ORDERED: ALDACTONE25 MG PO (13:48)
[2017-05-18 14:39] VITALS: BP 139/65
[2018-01-13] MEDS ORDERED: LOSARTAN POTAS100 MG PO (14:56)
[2018-01-13] MEDS ORDERED: TORSEMIDE10 MG PO (14:57)
[2018-01-13] MEDS ORDERED: MECLIZINE HCL12.5 MG PO (14:59)
[2018-01-13] MEDS ORDERED: XANAX 0.5 MG0.5 MG PO (15:00)
[2018-01-16] MEDS ORDERED: TORSEMIDE20 MG PO (17:12)
[2018-01-16] MEDS ORDERED: COZAAR 50 MG TA50 M1 PO (17:12)
[2018-01-16] MEDS ORDERED: AMLODIPINE BESYL5 MG PO (17:12)
[2018-01-16] MEDS ORDERED: SPIRONOLACTONE25 M1 PO (17:12)
[2018-01-16] MEDS ORDERED: BYSTOLIC20 MG PO (17:12)
== END 2017-05-18 15:29 | disposition home or self-care (01) | DRG 313 ==
LOC: ER 09:05 → 3W 11:18 → EROBS 11:18 → ER 12:44 → 3W 12:44
PROVIDERS: Family Medicine; Nurse Practitioner Adult Health; Physician Assistant; Psychiatry & Neurology Neuromuscular Medicine
DX: R07.89 Other chest pain (principal); F41.9 Anxiety disorder, unspecified; I25.10 Atherosclerotic heart disease of native coronary artery without angina pectoris; K21.9 Gastro-esophageal reflux disease without esophagitis; E87.6 Hypokalemia; G47.33 Obstructive sleep apnea (adult) (pediatric); N18.9 Chronic kidney disease, unspecified; I12.9 Hypertensive chronic kidney disease with stage 1 through stage 4 chronic kidney disease, or unspecified chronic kidney disease; J44.9 Chronic obstructive pulmonary disease, unspecified; E78.00 Pure hypercholesterolemia, unspecified; Z82.49 Family history of ischemic heart disease and other diseases of the circulatory system; Z79.899 Other long term (current) drug therapy; Z88.1 Allergy status to other antibiotic agents; Z90.49 Acquired absence of other specified parts of digestive tract; Z90.721 Acquired absence of ovaries, unilateral; Z91.040 Latex allergy status; Z88.0 Allergy status to penicillin; Z88.2 Allergy status to sulfonamides; Z91.018 Allergy to other foods; Z80.9 Family history of malignant neoplasm, unspecified; Z87.891 Personal history of nicotine dependence
CPT/HCPCS: 10879

== ENCOUNTER 2017-09-09 17:26 | Emergency (ER) | payer OTHER ==
[~2017-09-09] VITALS: Ht 162.6 cm; Wt 78.9 kg
--- NOTE | ~2017-09-09 | EKG ---
[facility] [place] [address] ELECTROCARDIOGRAM REPORT Name: KAROLINE CHRISTIANSON Room #: [facility] Biib#: [id number] Admission: 09/09/17 Attend Phys: Discharge: 09/09/17 Date of : 43 Report #: [id number] THIS REPORT FOR: //name// [facility] ED Test Date: 2017-09-09 Test Time: 18:01:42 Pat Name: KAROLINE CHRISTIANSON Department: Room: Gender: F Needle Punch Machine Operator Helper: DIEGO : 1945 Requested By: Radha Knapp Order Number: [id number] MD: Edson Arellano Measurements Intervals [place] Rate: 59 P: 34 DE: 126 QRS: -19 QRSD: 75 T: 27 QT: 409 QTc: 406 Interpretive Statements Sinus rhythm Left ventricular hypertrophy Compared to ECG 05/15/2017 10:14:30 Left ventricular hypertrophy now present ST (T wave) deviation no longer present Electronically Signed On 09-10-2017 9:08:37 CDT by Edson Arellano [email or web address] <ELECTRONICALLY SIGNED> By: Edson Arellano MD, [facility] 09/10/17 0908 00 00 Edson Arellano MD, [facility] /EPI
[~2017-09-09 17:26] MED LIST changes: +ALDACTONE25 MG PO; +ASPIR 8181 MG PO
[2017-09-09 18:47] LABS: ABSOLUTE NEUTROPHILS 9.5 thou/uL (1.4-8.2); BASOPHILS 0.1 % (0.0-2.0); HEMATOCRIT 36.8 % (37.0-47.0); HEMOGLOBIN 11.9 gm/dL (12.0-15.0); LYMPHOCYTES 8.1 % (24.0-44.0); MCH 26.9 pg (26.0-34.0); MCHC 32.3 g/dL (28.0-37.0); MCV 83.4 fL (80.0-100.0); MONOCYTES 5.5 % (1.0-8.0); PLATELET COUNT 268 thou/uL (150-400); POLYS 86.3 % (36.0-66.0); RBC 4.42 mil/uL (4.20-5.00); RDW 15.1 % (10.5-14.5); WBC 11.1 thou/uL (4.0-11.0)
[2017-09-09 18:57] LABS: ANION GAP 7 mmol/L (7-16); BUN 18 mg/dL (7-18); CALCIUM 9.4 mg/dL (8.5-10.1); CHLORIDE 100 mmol/L (98-107); CO2 34 mmol/L (21-32); CREATININE 1.2 mg/dL (0.6-1.0); GLUCOSE 129 mg/dL (74-106); POTASSIUM 3.1 mmol/L (3.5-5.1); SODIUM 141 mmol/L (136-145)
[2017-09-09 18:59] LABS: URINE BILIRUBIN NEGATIVE (Negative); URINE BLOOD NEGATIVE (Negative); URINE CLARITY CLEAR; URINE COLOR YELLOW; URINE GLUCOSE-RANDOM* NEGATIVE (Negative); URINE KETONES NEGATIVE (Negative); URINE LEUKOCYTES-REFLEX 1+ (Negative); URINE NITRITE-REFLEX NEGATIVE (Negative); URINE PROTEIN (DIPSTICK) NEGATIVE (Negative); URINE UROBILINOGEN 0.2 E.U./dl (0.2-1.0)
[2017-09-09 19:04] LABS: TROPONIN-I < 0.04 ng/mL (<0.06)
[2017-09-09 19:11] LABS: SQUAMOUS 0-3 Few /LPF (0-3)
[2017-09-09 19:12] LABS: BACTERIA-REFLEX None Seen /HPF (None Seen); CASTS None Seen /LPF (None Seen); CRYSTALS None Seen /LPF (None Seen); MUCUS None Seen strn/LPF (None Seen); URINE RBC None Seen /HPF (0-2); URINE WBC-REFLEX 0-5 Rare /HPF (0-5)
== END 2017-09-09 19:40 | disposition home or self-care (01) ==
LOC: ER 17:26
PROVIDERS: Emergency Medicine
DX: I95.1 Orthostatic hypotension (principal); I10 Essential (primary) hypertension; F41.9 Anxiety disorder, unspecified; J44.9 Chronic obstructive pulmonary disease, unspecified; G47.33 Obstructive sleep apnea (adult) (pediatric); K21.9 Gastro-esophageal reflux disease without esophagitis; E78.5 Hyperlipidemia, unspecified; I25.10 Atherosclerotic heart disease of native coronary artery without angina pectoris; Z90.89 Acquired absence of other organs; Z90.721 Acquired absence of ovaries, unilateral; Z91.040 Latex allergy status; Z88.0 Allergy status to penicillin; Z88.1 Allergy status to other antibiotic agents; Z91.018 Allergy to other foods; Z88.2 Allergy status to sulfonamides; Z88.8 Allergy status to other drugs, medicaments and biological substances; Z87.891 Personal history of nicotine dependence

== ENCOUNTER 2017-09-13 20:57 | Emergency (ER) | payer OTHER ==
[~2017-09-13] VITALS: Ht 162.6 cm; Wt 78.9 kg
--- NOTE | ~2017-09-13 | EKG ---
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 : 1945 Requested By: Bony Carter Order Number: [id number] MD: Edson Arellano Measurements Intervals [place] Rate: 59 P: 49 ME: 117 QRS: -17 QRSD: 78 T: 50 QT: 395 QTc: 392 Interpretive Statements Sinus rhythm Borderline short ME interval LVH with secondary repolarization abnormality Baseline wander in lead(s) V1 Compared to ECG 09/09/2017 18:01:42 No significant change was found Electronically Signed On 09-15-2017 16:32:02 CDT by Edson Arellano [email or web address] <ELECTRONICALLY SIGNED> By: Edson Arellano MD, [facility] [id number] Edson Arellano MD, [facility] /EPI
[2017-09-13 22:30] LABS: ABSOLUTE NEUTROPHILS 9.8 thou/uL (1.4-8.2); BASOPHILS 0.2 % (0.0-2.0); HEMATOCRIT 36.7 % (37.0-47.0); HEMOGLOBIN 11.9 gm/dL (12.0-15.0); LYMPHOCYTES 6.3 % (24.0-44.0); MCHC 32.3 g/dL (28.0-37.0); MCV 83.7 fL (80.0-100.0); MONOCYTES 5.9 % (1.0-8.0); PLATELET COUNT 215 thou/uL (150-400); POLYS 87.6 % (36.0-66.0); RBC 4.39 mil/uL (4.20-5.00); RDW 15.4 % (10.5-14.5); WBC 11.2 thou/uL (4.0-11.0)
[2017-09-13 22:39] LABS: ANION GAP 8 mmol/L (7-16); BUN 35 mg/dL (7-18); CALCIUM 9.2 mg/dL (8.5-10.1); CHLORIDE 97 mmol/L (98-107); CO2 36 mmol/L (21-32); CREATININE 1.9 mg/dL (0.6-1.0); GLUCOSE 147 mg/dL (74-106); SODIUM 141 mmol/L (136-145)
[2017-09-13 22:46] LABS: POTASSIUM 2.6 mmol/L (3.5-5.1)
[2017-09-13 22:47] LABS: ALBUMIN 4.3 g/dL (3.4-5.0); SGOT 26 U/L (15-37); SGPT 35 U/L (30-65); TOTAL BILIRUBIN 0.4 mg/dL (<0.1-1.0); TOTAL PROTEIN 7.3 g/dL (6.4-8.2); TROPONIN-I < 0.04 ng/mL (<0.06)
[2017-09-13] MEDS ORDERED: ALDACTONE25 MG PO (23:40)
== END 2017-09-14 01:00 | disposition home or self-care (01) ==
LOC: ER 20:57
PROVIDERS: Physician Assistant
DX: E87.6 Hypokalemia (principal); R60.0 Localized edema; F41.9 Anxiety disorder, unspecified; I10 Essential (primary) hypertension; I25.10 Atherosclerotic heart disease of native coronary artery without angina pectoris; G47.33 Obstructive sleep apnea (adult) (pediatric); K21.9 Gastro-esophageal reflux disease without esophagitis; E78.5 Hyperlipidemia, unspecified; Z91.040 Latex allergy status; Z88.0 Allergy status to penicillin; Z88.1 Allergy status to other antibiotic agents; Z88.2 Allergy status to sulfonamides; Z91.018 Allergy to other foods; Z88.8 Allergy status to other drugs, medicaments and biological substances; Z87.891 Personal history of nicotine dependence

== ENCOUNTER 2017-09-26 08:51 | Emergency (ER) | payer OTHER ==
[~2017-09-26] VITALS: Ht 162.6 cm; Wt 79.4 kg
--- NOTE | ~2017-09-26 | EKG ---
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[facility] : 1945 Requested By: Bony Carter Order Number: [id number] MD: Edson Arellano Measurements Intervals [place] Rate: 60 P: 60 LA: 127 QRS: -13 QRSD: 72 T: 110 QT: 388 QTc: 388 Interpretive Statements Sinus rhythm T wave abnormality, consider lateral ischemia Compared to ECG 09/13/2017 21:52:58 Lateral T wave abnormality is new Electronically Signed On 09-27-2017 8:47:46 CDT by Edson Arellano [email or web address] <ELECTRONICALLY SIGNED> By: Edson Arellano MD, [facility] 09/27/17 0847 0943 2 Edson Arellano MD, [facility] /EPI
[2017-09-26 09:32] LABS: URINE BILIRUBIN NEGATIVE (Negative); URINE BLOOD NEGATIVE (Negative); URINE CLARITY CLEAR; URINE COLOR YELLOW; URINE GLUCOSE-RANDOM* NEGATIVE (Negative); URINE KETONES NEGATIVE (Negative); URINE NITRITE-REFLEX NEGATIVE (Negative); URINE PROTEIN (DIPSTICK) NEGATIVE (Negative); URINE SPECIFIC GRAVITY <= 1.005 (1.005-1.035); URINE UROBILINOGEN 0.2 E.U./dl (0.2-1.0)
[2017-09-26 09:33] LABS: URINE LEUKOCYTES-REFLEX 1+ (Negative)
[2017-09-26 09:54] LABS: BACTERIA-REFLEX 1-9 Few /HPF (None Seen); CASTS None Seen /LPF (None Seen); CRYSTALS None Seen /LPF (None Seen); SQUAMOUS None Seen /LPF (0-3); URINE RBC None Seen /HPF (0-2); URINE WBC-REFLEX 0-5 Rare /HPF (0-5)
[2017-09-26 10:15] LABS: HEMATOCRIT 37.9 % (37.0-47.0); HEMOGLOBIN 12.3 gm/dL (12.0-15.0); MCH 27.7 pg (26.0-34.0); MCHC 32.5 g/dL (28.0-37.0); MCV 85.3 fL (80.0-100.0); PLATELET COUNT 235 thou/uL (150-400); RBC 4.44 mil/uL (4.20-5.00); RDW 16.1 % (10.5-14.5)
[2017-09-26 10:23] LABS: ANION GAP < 0 mmol/L (7-16); BUN 26 mg/dL (7-18); CHLORIDE 100 mmol/L (98-107); CO2 44 mmol/L (21-32); CREATININE 1.6 mg/dL (0.6-1.0); GLUCOSE 111 mg/dL (74-106); SODIUM 142 mmol/L (136-145)
[2017-09-26 10:24] LABS: POTASSIUM 2.8 mmol/L (3.5-5.1)
[2017-09-26 10:35] LABS: SGOT 39 U/L (15-37); SGPT 55 U/L (30-65); TOTAL BILIRUBIN 0.5 mg/dL (<0.1-1.0); TOTAL PROTEIN 6.8 g/dL (6.4-8.2)
[2017-09-26 10:36] LABS: TROPONIN-I < 0.04 ng/mL (<0.06)
[2017-09-26 10:38] LABS: ABSOLUTE NEUTROPHILS 6.1 thou/uL (1.4-8.2); PLATELET ESTIMATE NORMAL
[2017-09-26] MEDS ORDERED: POTASSIUM20 PO (12:30)
[2017-09-26] MEDS ORDERED: LASIX 20 MG TAB20 MG PO (12:30)
[2017-09-26] MEDS ORDERED: COMPRESSION TH1 EACH TOP (12:39)
[2017-09-26] MEDS ORDERED: MACROBID 100 M100 M1 PO (13:13)
== END 2017-09-26 13:38 | disposition home or self-care (01) ==
LOC: ER 08:51
PROVIDERS: Physician Assistant
DX: R60.0 Localized edema (principal); J44.9 Chronic obstructive pulmonary disease, unspecified; G47.33 Obstructive sleep apnea (adult) (pediatric); I25.10 Atherosclerotic heart disease of native coronary artery without angina pectoris; K21.9 Gastro-esophageal reflux disease without esophagitis; I10 Essential (primary) hypertension; E78.5 Hyperlipidemia, unspecified; Z87.891 Personal history of nicotine dependence; Z88.0 Allergy status to penicillin; Z88.1 Allergy status to other antibiotic agents

== ENCOUNTER 2017-09-28 15:28 | Emergency (ER) | payer OTHER ==
[~2017-09-28] VITALS: Ht 162.6 cm; Wt 81.7 kg
--- NOTE | ~2017-09-28 | EKG ---
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 09/30/17 0755 1545 1545 Edson Arellano MD, FAC /EPI
[~2017-09-28 15:28] MED LIST changes: +COMPRESSION TH1 EACH TOP; +LASIX 20 MG TAB20 MG PO; +MACROBID 100 M100 M1 PO; +POTASSIUM20 PO
[2017-09-28 16:09] LABS: ABSOLUTE NEUTROPHILS 10.3 thou/uL (1.4-8.2); BASOPHILS 0.4 % (0.0-2.0); HEMOGLOBIN 12.3 gm/dL (12.0-15.0); LYMPHOCYTES 6.8 % (24.0-44.0); MCH 27.7 pg (26.0-34.0); MCHC 32.2 g/dL (28.0-37.0); MCV 85.9 fL (80.0-100.0); MONOCYTES 4.4 % (1.0-8.0); PLATELET COUNT 217 thou/uL (150-400); POLYS 88.4 % (36.0-66.0); RBC 4.43 mil/uL (4.20-5.00); RDW 16.5 % (10.5-14.5); WBC 11.6 thou/uL (4.0-11.0)
[2017-09-28 16:14] LABS: CALCIUM 9.9 mg/dL (8.5-10.1); CREATININE 1.8 mg/dL (0.6-1.0); POTASSIUM 3.9 mmol/L (3.5-5.1)
[2017-09-28 16:23] LABS: TROPONIN-I 0.04 ng/mL (<0.06)
[2017-09-28] MEDS ORDERED: ZPAK PO (18:35)
== END 2017-09-28 19:10 | disposition home or self-care (01) ==
LOC: ER 15:28
PROVIDERS: Emergency Medicine
DX: R07.9 Chest pain, unspecified (principal); R11.0 Nausea; M10.9 Gout, unspecified; J44.9 Chronic obstructive pulmonary disease, unspecified; I10 Essential (primary) hypertension; I25.10 Atherosclerotic heart disease of native coronary artery without angina pectoris; K21.9 Gastro-esophageal reflux disease without esophagitis; E78.5 Hyperlipidemia, unspecified; F17.210 Nicotine dependence, cigarettes, uncomplicated; Z90.89 Acquired absence of other organs; Z88.1 Allergy status to other antibiotic agents; Z88.0 Allergy status to penicillin; Z88.8 Allergy status to other drugs, medicaments and biological substances; Z91.040 Latex allergy status; Z91.041 Radiographic dye allergy status; Z91.018 Allergy to other foods

== ENCOUNTER 2018-02-06 19:45 | Inpatient (IN) | payer OTHER ==
[~2018-02-06] VITALS: Ht 162.6 cm; Wt 79.2 kg
--- NOTE | ~2018-02-06 | H ---
[facility] [place] [address] HISTORY AND PHYSICAL Name: KAROLINE CHRISTIANSON Room #: 350-P ADM IN M.R.#: [id number] Admission: 02/06/18 Attend Phys: Tommy Bhakta MD, FAAF Discharge: Date of : 43 Report #: [id number] THIS REPORT FOR: //name// CC: Tommy Henry DATE OF SERVICE: 02/07/2018 CHIEF COMPLAINT: Right hip pain. HISTORY OF PRESENT ILLNESS: The patient is a 72-year-old black female well known to me. She is evaluated in the Emergency Room and admitted from there with several day evolution of right hip pain. CT scan showed an effusion. Sed rate was mildly elevated at 30 and white count was mildly elevated as well at 13.4. Lactate was elevated as well at 2.8 and subsequently 2.3 and she was admitted for diagnostic studies including aspiration of the joint effusion of the right hip as well as an Orthopedic Surgery consult. She was also hypokalemic. PAST MEDICAL HISTORY: Tonsillectomy, anxiety attacks, right oophorectomy, hypertension, COPD, obstructive sleep apnea, coronary artery disease, cardiomegaly, gastroesophageal reflux, hyperlipidemia, carotid stenosis, hypokalemia, colonoscopies, chronic renal disease and stents. MEDICATIONS: Bystolic 20 mg 1 p.o. daily, amlodipine 5 mg p.o. daily, losartan 50 mg 1 p.o. daily, spironolactone 25 mg p.o. daily, torsemide 20 mg p.o. daily, aspirin 81 mg chewable, potassium chloride 20 mEq 1 p.o. b.i.d., alprazolam 0.5 mg 1 p.o. q. 6 hours p.r.n. anxiety. ALLERGIES: OPTIRAY, LATEX, PENICILLIN, CEPHALEXIN, CONTRAST DYES, STRAWBERRY AND SULFA. SOCIAL HISTORY: Lives at home with a long-term boyfriend, smoked cigarettes in the past. Drinks ethanol socially. REVIEW OF SYSTEMS: GENERAL: No fever, chills, nausea, vomiting, diarrhea. EYES: No visual changes. ENT: No problems with hearing, swallow, taste or smell. CARDIOVASCULAR: No chest pain or palpitations. RESPIRATORY: No difficulty breathing. GASTROINTESTINAL: No abdominal pain. GENITOURINARY: No problems urinating. MUSCULOSKELETAL: Right hip pain. NEUROLOGIC: No paresis, paralysis or paresthesias. PSYCHIATRIC: Frustrated, not depressed. [address] [address] HISTORY AND PHYSICAL Name: KAROLINE CHRISTIANSON Room #: 350-P [facility] IN ..#: [id number] Admission: 02/06/18 Attend Phys: Tommy Bhakta MD, FAAF Discharge: Date of : 43 Report #: [id number] DERMATOLOGIC: No disturbing lesions or rash. Remainder of system review is negative. OBJECTIVE: VITAL SIGNS: Temperature 37.1, pulse 75, respirations 20, blood pressure 104/81. GENERAL: She is in no acute distress. Her right hip does hurt her. HEENT: Pupils are equal, round, reactive to light and accommodation. Extraocular muscles intact. Pharynx unremarkable. NECK: Supple. COR: S1, S2. CHEST: Clear. ABDOMEN: Soft, nontender. EXTREMITIES: Not edematous today. Her right hip is tender and pain is worse with movement. NEUROLOGIC: She is intact without focal neurologic deficit. LABORATORY DATA: CBC: White count 13.4, hemoglobin 11.0, hematocrit 33.5, platelets 296,000. Serum chemistry: Sodium 148, potassium 1.7, chloride 100, CO2 greater than 45, BUN 32, creatinine 1.8, estimated glomerular filtration rate 33, glucose 175. Lactate 2.8, repeated 2.3, calcium is 9.4. C-reactive protein is 34.2, elevated. Sed rate 30 also top of normal limits. CT scan of pelvis without contrast: Degenerative changes, right hip greater than left with no obvious acute fracture, large right hip joint effusion was present. Trace amount of free fluid was seen in the pelvis, nonspecific degenerative changes in the spine. Ultrasound of the right lower extremity is negative for DVT. ASSESSMENT: Right hip pain with effusion, hypokalemia, anemia, chronic renal insufficiency. PLAN: Admitted to the hospital. Joint effusion after joint fluid obtained. Start antibiotics if findings consistent with septic arthritis. Interventional Radiology consulted and Dr. Henry and his group consulted from Orthopedic Surgery. <ELECTRONICALLY SIGNED> By: Tommy Bhakta MD, FAAFP, FACEP 02/13/181743 32 33 Tommy Bhakta MD, ISAACFP, FACEP /nt
--- NOTE | ~2018-02-06 | HC ---
[facility] [place] [address] CONSULTATION Name: KAROLINE CHRISTIANSON Room #: 350- ADM IN M.R.#: [id number] Admission: 02/06/18 Attend Phys: Tommy Bhakta MD, FAAF Discharge: Date of : 43 Report #: [id number] THIS REPORT FOR: //name// CC: Tommy Bhakta MD REASON FOR CONSULTATION: Right hip pain. HISTORY OF PRESENT ILLNESS: The patient is a 72-year-old female who gives a history of 6-12 months of right hip pain. She reports the pain has become progressively worse over the last few weeks. She reports difficulty ambulating, difficulty weightbearing. She reports the pain is mostly located in her lateral femur and groin area. She denies any injury. REVIEW OF SYSTEMS: NEUROLOGIC: Denies numbness or tingling in her extremities. MUSCULOSKELETAL: Denies other extremity pain. PAST MEDICAL HISTORY: Significant for coronary artery disease, hypertension, COPD obstructive sleep apnea, gastroesophageal reflux disease, hyperlipidemia, chronic renal disease. PAST SURGICAL HISTORY: Tonsillectomy, carotid stent placement, and stent placed for her renal arteries. ALLERGIES: OPTIRAY, LATEX, PENICILLIN, KEFLEX, CONTRAST DYE, STRAWBERRY AND SULFA. SOCIAL HISTORY: Lives at home with her long-term boyfriend, drinks alcohol socially. She has been using a walker for ambulation. LABORATORY DATA: On 02/08/2018, showed white blood cell count 14.6, hemoglobin 10, hematocrit 30.6, platelet count 16.2. ESR on 02/06/2018 was 30. Chemistry on 02/08/2018 shows a significantly low potassium at 2.0, creatinine is slightly elevated at 1.2. CRP on 02/06/2018 was elevated at 34.2. Fluid analysis done on 02/07/2018 from her right hip showed white blood cell count 31,000, neutrophils 84 and no crystals were seen. PHYSICAL EXAMINATION: GENERAL: The patient is alert and oriented. She interacts appropriately. She is a well-developed, well-nourished female, in no acute distress. VITAL SIGNS: Most recent vital signs show temperature of 36.8, heart rate 58, respiration rate of 18, blood pressure 147/69, pulse oximetry is 97% on room air. EXTREMITIES: Examination of her bilateral lower extremities, skin is clean, dry and intact. She has brisk capillary refill. EHL, FHL, dorsiflexion and plantar flexion are intact. She has diffuse bilateral symmetric [place] [address] CONSULTATION Name: KAROLINE CHRISTIANSON Room #: [address] [place] [address] [place] [facility].#: [id number] Admission: 02/06/18 Attend Phys: Tommy Bhakta MD, FAAF Discharge: Date of : 43 Report #: [id number] no tenderness to palpation throughout the patient's bilateral knees, legs, ankles, or feet. There is no pain with range of motion of bilateral knees, ankles, or feet. There is no pain with range of motion of the left hip. There is some mild pain with range of motion of the right hip. There is tenderness to palpation of the anterior hip and lateral greater trochanter. There is no tenderness of the right posterior hip area. RADIOGRAPHS: CT of the pelvis shows joint effusion, some arthrosis is noted. IMPRESSION AND PLAN: Right hip pain with fluid analysis not consistent with infection at this point, microbiology is pending. I discussed the diagnosis as well as treatment options with the patient. She has a strong desire to avoid any surgery. She may be weightbearing as tolerated on this leg and I will continue to follow her. We will continue to follow the labs. By: 0928 1225 Madeleine Terry MD /nt
[~2018-02-06 19:45] MED LIST changes: +AMLODIPINE BESYL5 MG PO; +BYSTOLIC20 MG PO; +COZAAR 50 MG TA50 M1 PO; +LOSARTAN POTAS100 MG PO; +MECLIZINE HCL12.5 MG PO; +SPIRONOLACTONE25 M1 PO; +TORSEMIDE10 MG PO; +TORSEMIDE20 MG PO; +XANAX 0.5 MG0.5 MG PO; +ZPAK PO
[2018-02-06 19:46] VITALS: BP 104/81
[2018-02-06 21:03] LABS: HEMATOCRIT 33.5 % (37.0-47.0); MCH 29.7 pg (26.0-34.0); MCHC 32.7 g/dL (28.0-37.0); MCV 90.7 fL (80.0-100.0); RBC 3.69 mil/uL (4.20-5.00); WBC 13.4 thou/uL (4.0-11.0)
[2018-02-06 21:12] LABS: BUN 32 mg/dL (7-18); CALCIUM 9.4 mg/dL (8.5-10.1); CHLORIDE 100 mmol/L (98-107); CREATININE 1.8 mg/dL (0.6-1.0); GLUCOSE 175 mg/dL (74-106); SODIUM 148 mmol/L (136-145)
[2018-02-06 21:13] LABS: CO2 > 45 mmol/L (21-32); POTASSIUM 1.7 mmol/L (3.5-5.1)
[2018-02-06 21:30] LABS: MAGNESIUM 2.3 mg/dL (1.8-2.4)
[2018-02-07 00:11] VITALS: BP 154/97
[2018-02-07 00:29] VITALS: BP 154/97
[2018-02-07 05:00] VITALS: BP 166/80
[2018-02-07 07:47] VITALS: BP 159/90
[2018-02-07 14:09] LABS: BF NUCLEATED CELLS 31484; BF RBC 3271
[2018-02-07 14:10] LABS: CLARITY CLOUDY; COLOR YELLOW; TOTAL VOLUME 7 mL
[2018-02-07 14:47] LABS: BF CRYSTALS No Crystals seen
[2018-02-07 16:24] LABS: BF NEUTROPHILS 88; SOURCE SYNOVIAL
[2018-02-07 16:25] LABS: BF MACROPHAGE 9
[2018-02-07 16:51] VITALS: BP 156/87
[2018-02-07 19:15] VITALS: BP 152/81
[2018-02-08 06:00] VITALS: BP 174/86
[2018-02-08 06:19] LABS: HEMATOCRIT 30.6 % (37.0-47.0); MCH 29.8 pg (26.0-34.0); MCHC 32.7 g/dL (28.0-37.0); PLATELET COUNT 283 thou/uL (150-400); RBC 3.37 mil/uL (4.20-5.00); RDW 16.2 % (10.5-14.5); WBC 14.6 thou/uL (4.0-11.0)
[2018-02-08 06:30] LABS: CALCIUM 9.4 mg/dL (8.5-10.1); CREATININE 1.2 mg/dL (0.6-1.0)
[2018-02-08 08:00] VITALS: BP 147/69
[2018-02-08 08:10] LABS: PLATELET ESTIMATE NORMAL
[2018-02-08 12:00] VITALS: BP 148/94
[2018-02-08 14:30] VITALS: BP 152/86
[2018-02-08 16:00] VITALS: BP 151/81
[2018-02-08 19:09] VITALS: BP 134/85
[2018-02-09 03:20] VITALS: BP 152/89
[2018-02-09 05:35] LABS: URINE BILIRUBIN NEGATIVE (Negative); URINE BLOOD TRACE (Negative); URINE CLARITY CLEAR; URINE COLOR YELLOW; URINE GLUCOSE-RANDOM* 1+ (Negative); URINE KETONES NEGATIVE (Negative); URINE LEUKOCYTES-REFLEX NEGATIVE (Negative); URINE NITRITE-REFLEX NEGATIVE (Negative); URINE PROTEIN (DIPSTICK) TRACE (Negative); URINE UROBILINOGEN 0.2 E.U./dl (0.2-1.0)
[2018-02-09 05:42] LABS: HEMATOCRIT 31.3 % (37.0-47.0); MCH 29.1 pg (26.0-34.0); MCHC 31.8 g/dL (28.0-37.0); MCV 91.5 fL (80.0-100.0); RBC 3.42 mil/uL (4.20-5.00); RDW 16.1 % (10.5-14.5); WBC 13.2 thou/uL (4.0-11.0)
[2018-02-09 06:07] LABS: CALCIUM 9.2 mg/dL (8.5-10.1); CREATININE 1.3 mg/dL (0.6-1.0)
[2018-02-09 06:10] LABS: POTASSIUM 2.3 mmol/L (3.5-5.1)
[2018-02-09 07:24] VITALS: BP 154/98
[2018-02-09 11:18] VITALS: BP 138/76
[2018-02-09 15:34] VITALS: BP 134/79
[2018-02-09 19:35] VITALS: BP 143/79
[2018-02-09 20:00] VITALS: BP 143/79
[2018-02-10 05:08] VITALS: BP 139/86
[2018-02-10 05:42] LABS: HEMATOCRIT 33.3 % (37.0-47.0); HEMOGLOBIN 10.7 gm/dL (12.0-15.0); MCH 29.4 pg (26.0-34.0); MCV 91.8 fL (80.0-100.0); RBC 3.63 mil/uL (4.20-5.00); RDW 16.6 % (10.5-14.5); WBC 12.7 thou/uL (4.0-11.0)
[2018-02-10 05:51] LABS: CALCIUM 9.5 mg/dL (8.5-10.1); CREATININE 1.5 mg/dL (0.6-1.0); POTASSIUM 3.4 mmol/L (3.5-5.1)
[2018-02-10 07:21] VITALS: BP 152/97
[2018-02-10 11:15] VITALS: BP 136/76
[2018-02-10 16:53] VITALS: BP 155/93
[2018-02-10 19:38] VITALS: BP 132/88
[2018-02-11] VITALS (8 sets, daily range): BP systolic 137–194; BP diastolic 85–100
[2018-02-11 16:10] LABS: ANA INTERPRETATION Negative (())
[2018-02-12 05:43] VITALS: BP 153/87
[2018-02-12 07:05] VITALS: BP 151/96
[2018-02-12 07:48] VITALS: BP 153/87
[2018-02-12 12:00] VITALS: BP 141/96
[2018-02-12 16:38] VITALS: BP 138/81
[2018-02-12 19:30] VITALS: BP 158/94
[2018-02-13 04:20] VITALS: BP 169/91
[2018-02-13 06:13] LABS: ABSOLUTE NEUTROPHILS 7.2 thou/uL (1.4-8.2); BASOPHILS 0.2 % (0.0-2.0); EOSINOPHILS 0.2 % (0.0-3.0); HEMATOCRIT 31.6 % (37.0-47.0); HEMOGLOBIN 10.3 gm/dL (12.0-15.0); LYMPHOCYTES 9.4 % (24.0-44.0); MCH 29.8 pg (26.0-34.0); MCHC 32.6 g/dL (28.0-37.0); MCV 91.5 fL (80.0-100.0); MONOCYTES 6.4 % (1.0-8.0); PLATELET COUNT 222 thou/uL (150-400); POLYS 83.8 % (36.0-66.0); RBC 3.46 mil/uL (4.20-5.00); RDW 16.9 % (10.5-14.5); WBC 8.6 thou/uL (4.0-11.0)
[2018-02-13 06:18] LABS: CREATININE 1.3 mg/dL (0.6-1.0); POTASSIUM 3.7 mmol/L (3.5-5.1)
[2018-02-13 08:34] VITALS: BP 147/89
[2018-02-13 12:45] VITALS: BP 154/105
[2018-02-13] MEDS ORDERED: COZAAR100 MG PO (17:33)
[2018-02-13] MEDS ORDERED: CLEOCIN HCL150 MG PO (17:33)
[2018-02-13] MEDS ORDERED: MOBIC7.5 M1 PO (17:33)
== END 2018-02-13 18:37 | DRG 565 ==
LOC: ER 19:45 → EROBS 23:48 → 3W 23:48 → ER 02-07 00:30 → 3W 02-07 00:31
PROVIDERS: Family Medicine; Hospitalist; Physician Assistant; Radiology Diagnostic Radiology
PROC: 0S993ZX Drainage of Right Hip Joint, Percutaneous Approach, Diagnostic (ICD-10-PCS; principal; 2018-02-07)
PROC: 5A09357 Assistance with Respiratory Ventilation, Less than 24 Consecutive Hours, Continuous Positive Airway Pressure (ICD-10-PCS; 2018-02-08)
DX: M25.451 Effusion, right hip (principal); E87.0 Hyperosmolality and hypernatremia; M16.11 Unilateral primary osteoarthritis, right hip; J44.9 Chronic obstructive pulmonary disease, unspecified; G47.33 Obstructive sleep apnea (adult) (pediatric); I25.10 Atherosclerotic heart disease of native coronary artery without angina pectoris; E78.5 Hyperlipidemia, unspecified; N18.9 Chronic kidney disease, unspecified; E87.6 Hypokalemia; K21.9 Gastro-esophageal reflux disease without esophagitis; F41.9 Anxiety disorder, unspecified; D64.9 Anemia, unspecified; I12.9 Hypertensive chronic kidney disease with stage 1 through stage 4 chronic kidney disease, or unspecified chronic kidney disease; Z90.721 Acquired absence of ovaries, unilateral; Z88.2 Allergy status to sulfonamides; Z88.8 Allergy status to other drugs, medicaments and biological substances; Z91.041 Radiographic dye allergy status; Z91.040 Latex allergy status; Z87.891 Personal history of nicotine dependence; Z79.82 Long term (current) use of aspirin; Z79.899 Other long term (current) drug therapy; Z82.49 Family history of ischemic heart disease and other diseases of the circulatory system; Z88.0 Allergy status to penicillin
CPT/HCPCS: 10879

== ENCOUNTER 2018-02-21 18:07 | Emergency (ER) | payer OTHER ==
[~2018-02-21] VITALS: Ht 154.9 cm; Wt 120.2 kg
--- NOTE | ~2018-02-21 | EKG ---
[place] [address] [facility] [place] [address] ELECTROCARDIOGRAM REPORT Name: KAROLINE CHRISTIANSON Room #: DEP Bibi#: [id number] Admission: 02/21/18 Attend Phys: Discharge: 02/22/18 Date of : 43 Report #: [id number] THIS REPORT FOR: //name// [facility] ED Test Date: 2018-02-21 Test Time: 18:22:52 Pat Name: KAROLINE CHRISTIANSON Department: Room: Gender: F Service Center Supervisor: JOAOAleena : 1945 Requested By: Celsa Pavon Order Number: [id number] MD: Edson Arellano Measurements Intervals [place] Rate: 65 P: 60 OR: 128 QRS: -13 QRSD: 79 T: 55 QT: 363 QTc: 378 Interpretive Statements Sinus rhythm Multiple premature complexes, supraven LVH with secondary repolarization abnormality Baseline wander in lead(s) I,aVR Compared to ECG 01/14/2018 07:25:48 Nonspecific change in the T wave abnormality Electronically Signed On 02-22-2018 10:10:12 CDT by Edson Arellano [email or web address] <ELECTRONICALLY SIGNED> By: Edson Arellano MD, [facility] 02/22/18 1010 182 182 Edson Arellano MD, [facility] /EPI
[~2018-02-21 18:07] MED LIST changes: +CLEOCIN HCL150 MG PO; +COZAAR100 MG PO; +MOBIC7.5 M1 PO
[2018-02-21 19:03] LABS: HEMATOCRIT 28.1 % (37.0-47.0); HEMOGLOBIN 9.4 gm/dL (12.0-15.0); MCH 30.1 pg (26.0-34.0); MCHC 33.5 g/dL (28.0-37.0); MCV 89.7 fL (80.0-100.0); PLATELET COUNT 180 thou/uL (150-400); RBC 3.13 mil/uL (4.20-5.00); RDW 16.9 % (10.5-14.5); WBC 14.2 thou/uL (4.0-11.0)
[2018-02-21 19:22] LABS: ABSOLUTE NEUTROPHILS 12.2 thou/uL (1.4-8.2)
[2018-02-21 19:23] LABS: CALCIUM 9.8 mg/dL (8.5-10.1); CREATININE 1.8 mg/dL (0.6-1.0); POTASSIUM 3.2 mmol/L (3.5-5.1)
[2018-02-21 20:52] LABS: URINE BILIRUBIN NEGATIVE (Negative); URINE BLOOD NEGATIVE (Negative); URINE CLARITY CLEAR; URINE COLOR YELLOW; URINE GLUCOSE-RANDOM* NEGATIVE (Negative); URINE KETONES NEGATIVE (Negative); URINE LEUKOCYTES-REFLEX NEGATIVE (Negative); URINE NITRITE-REFLEX NEGATIVE (Negative); URINE PROTEIN (DIPSTICK) NEGATIVE (Negative); URINE UROBILINOGEN 0.2 E.U./dl (0.2-1.0)
== END 2018-02-22 07:52 | disposition home or self-care (01) ==
LOC: ER 18:07
PROVIDERS: Student in an Organized Health Care Education/Training Program
DX: E87.6 Hypokalemia (principal); I10 Essential (primary) hypertension; J44.9 Chronic obstructive pulmonary disease, unspecified; I25.10 Atherosclerotic heart disease of native coronary artery without angina pectoris; I51.7 Cardiomegaly; E78.5 Hyperlipidemia, unspecified; K21.9 Gastro-esophageal reflux disease without esophagitis; Z88.0 Allergy status to penicillin; Z88.1 Allergy status to other antibiotic agents; Z88.2 Allergy status to sulfonamides; Z88.8 Allergy status to other drugs, medicaments and biological substances; Z91.040 Latex allergy status; Z79.899 Other long term (current) drug therapy; Z87.891 Personal history of nicotine dependence